=== PATIENT | female | born 2000 | race Caucasian/White ===

== ENCOUNTER 2018-05-15 10:30 | Emergency (ER) | payer OTHER ==
--- NOTE | 2018-05-15 11:08 | ED ---
Abdominal Pain/Female - HPI Summary HPI Summary: A 17 y/o F presents to the ED with c/o LLQ pain onset three days ago, and worsening last night and today. Pain is described as cramping and sharp. Aggravating factors: deep breaths, walking. When she walks, the pain radiates toward her LUQ and L-sided back. She denies urinary sx. She has not taken any OTC mediations for pain. She flew from [place] two weeks ago, and had some episodes of diarrhea but that spontaneously resolved. She's had a BM twice in the past three days per baseline. She has a PMHx of IBS/constipation. Other PMHx includes CP, asthma, heart murmur. [facility]: 05/13/2018 which was normal for her. - History of Current Complaint Chief Complaint: EDAbdPain Stated Complaint: LEFT SIDED ABD PAIN PER PT Time Seen by Provider: 05/15/18 10:57 Hx Obtained From: Patient Onset/Duration: Gradual Onset, Lasting Days, Still Present Timing: Constant Severity Initially: Moderate Severity Currently: Moderate Pain Intensity: 7 Pain Scale Used: 0-10 Numeric Location: Discrete At: LLQ Radiates: Yes Radiates to: Back, Other - LUQ Character: Sharp, Cramping Aggravating Factor(s): Movement - walking, Deep Breaths Associated Signs and Symptoms: Negative: Urinary Symptoms Allergies/Adverse Reactions: Allergies Allergy/AdvReac Type Severity Reaction Status Date / Time No Known Allergies Allergy Verified 05/15/18 10:35 PMH/Surg Hx/FS Hx/Imm Hx Previously Healthy: No - CP, heart murmur Respiratory History: Reports: Hx Asthma GI History: Reports: Hx Irritable Bowel Infectious Disease History: No Infectious Disease History: Denies: Traveled Outside the [place] in Last 30 Days - Family History Known Family History: Positive: Unknown - She states she does not really talk to family - Social History Occupation: Student Lives: Dormitory/Roommates Review of Systems Positive: Abdominal Pain Negative: dysuria, hematuria Musculoskeletal: Other - pos: back pain All Other Systems Reviewed And Are Negative: Yes Physical Exam - Summary Physical Exam Summary: Appearance: The patient is well-nourished in no acute distress and in no acute pain. Skin: The skin is warm and dry and skin color reflects adequate perfusion. HEENT: The head is normocephalic and atraumatic. The pupils are equal and reactive. The conjunctivae are clear and without drainage. Nares are patent and without drainage. Mouth reveals moist mucous membranes and the throat is without erythema and exudate. The external ears are intact. The ear canals are patent and without drainage. The tympanic membranes are intact. Neck: the neck is supple with full range of motion and non-tender. There are no carotid bruits. There is no neck vein distension. Respiratory: Chest is non-tender. Lungs are clear to auscultation and breath sounds are symmetrical and equal. Cardiovascular: Heart is regular rate and rhythm. There is no murmur or rub auscultated. There is no peripheral edema and pulses are symmetrical and equal. Abdomen: The abdomen is soft with mild tenderness to the L periumbilical area. There are normal bowel sounds heard in all four quadrants and there is no organomegaly palpated. Musculoskeletal: There is no back tenderness noted. Extremities are non-tender with full range of motion. There is good capillary refill. There is no peripheral edema or calf tenderness elicited. Neurological: Patient is alert and oriented to person, place and time. The patient has symmetrical motor strength in all four extremities. Cranial nerves are grossly intact. Deep tendon reflexes are symmetrical and equal in all four extremities. Psychiatric: The patient has an appropriate affect and does not exhibit any anxiety or depression. Triage Information Reviewed: Yes Vital Signs On Initial Exam: Initial Vitals Temp Pulse Resp BP Pulse Ox 99.1 F 132 20 140/97 97 05/15/18 10:31 05/15/18 10:31 05/15/18 10:31 05/15/18 10:31 05/15/18 10:31 Vital Signs Reviewed: Yes Diagnostics - Vital Signs Vital Signs Temp Pulse Resp BP Pulse Ox 05/15/18 10:31 99.1 F 132 20 140/97 97 - Laboratory Result Diagrams: 05/15/18 11:19 05/15/18 11:19 Lab Statement: Any lab studies that have been ordered have been reviewed, and results considered in the medical decision making process. - CT A/P CT CT Interpretation Completed By: Radiologist Summary of CT Findings: IMPRESSION: 1. There are multiple punctate calcifications in the bilateral renal collecting systems. No calculi is seen in either ureter or in the urinary bladder. There is questionable slight left- sided perinephric stranding raising the possibility that the patient has recently passed a left-sided renal stone. 2. 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 Please correspond to any chronic, gravity dependent pelvic pain or asymmetric swelling of the left leg relative to the right. ED provider has reviewed this report. Re-Evaluation - Re-Evaluation 1 Re-Evaluation Time: 15:35 Change: Improved Comment: Discussing results with pt. Abdominal Pain Fem Course/Dx - Course Course Of Treatment: Ms. Denis presented with about 3 days of left flank pain. It was aggravated by deep breaths and walking around but generally not reproducible. She denied any other symptoms. She was nontoxic in appearance with stable vitals and only mild left periumbilical tenderness. Labs were obtained and revealed a mild leukocytosis and an infected urine. My concern was she might have an obstructive lesion given how much pain she had and a CT scan was obtained after consulting with her. The radiologist felt there was some stranding and likely she had passed a stone. Either that or she has a pyelonephritis by itself. In either case I would treat her with antibiotics and she is stable. - Diagnoses Provider Diagnoses: Pyelonephritis Discharge - Sign-Out/Discharge Documenting (check all that apply): Patient Departure - DC Patient Received Moderate/Deep Sedation with Procedure: No - Discharge Plan Condition: Stable Disposition: HOME Prescriptions: Nitrofurantoin Monohyd/M-Cryst [Macrobid 100 mg Capsule] 100 mg PO BID #10 cap Patient Education Materials: Nitrofurantoin Combination (By mouth), Kidney Infection (ED) Forms: *School Release Referrals: [facility] [Outside] [facility] [place] [facility] [Outside] - 3 Days Additional Instructions: Please return to the ED if you experience new or worsening symptoms. Follow up with your primary care provider in 2-3 days. - Billing Disposition and Condition Condition: STABLE Disposition: Home - Attestation Statements Document Initiated by Scribe: Yes Documenting Scribe: Gloria Carson Provider For Whom Scribe is Documenting (Include Credential): Dr. Antonio Rebollar MD Scribe Attestation: Gloria Brath, scribed for Dr. Antonio Rebollar MD on 05/15/18 at 1728. Scribe Documentation Reviewed: Yes Provider Attestation: The documentation as recorded by the scribe, Gloria Carson accurately reflects the service I personally performed and the decisions made by me, Dr. Antonio Rebollar MD Status of Scribe Document: Viewed
[2018-05-15] MEDS ORDERED: NS 0.9% 1000 ML** 1,000 ML IV ONE (11:11)
[2018-05-15] MEDS ORDERED: Acetaminophen TAB* 325 MG PO ONE (11:11)
[2018-05-15 11:28] LABS: ABS Basophils 0.2 10^3/ul (0-0.2); ABS Eosinophils 0.1 10^3/ul (0-0.6); ABS Lymphocytes 1.5 10^3/ul (1.0-4.8); ABS Monocytes 0.8 10^3/ul (0-0.8); ABS Neutrophils 11.3 10^3/ul (1.5-7.7); ABS Nucleated RBC 0 10^3/ul; Eosinophil % 0.5 %; Hematocrit 43 % (33-41); Hemoglobin 14.5 g/dL (12.0-16.0); Lymphocyte % 10.8 %; Mean Corpuscular HGB Conc 34 g/dL (31-36); Mean Corpuscular Hemoglobin 30 pg (27-31); Mean Corpuscular Volume 87 fL (80-97); Mean Platelet Volume 8.9 fL (7.4-10.4); Nucleated Red Blood Cells % 0; Platelet Count 283 10^3/uL (150-450); Red Cell Distribution Width 13 % (10.5-15); White Blood Count 13.8 10^3/uL (3.5-10.8)
[2018-05-15 11:43] LABS: Urine Appearance Cloudy; Urine Bacteria 1+ (Absent); Urine Bilirubin Negative (Negative); Urine Blood 2+ (Negative); Urine Color Yellow; Urine Glucose Negative (Negative); Urine Ketones 1+ (Negative); Urine Nitrite Negative (Negative); Urine Protein 1+(30 mg/dL) (Negative); Urine Red Blood Cell 2+(6-10/hpf) (Absent); Urine Specific Gravity 1.009 (1.010-1.030); Urine Squamous Epithelial Cell Present (Absent); Urine Urobilinogen Negative (Negative); Urine White Blood Cell 3+(>20/hpf) (Absent)
[2018-05-15 11:54] LABS: ALT 20 U/L (7-52); AST 14 U/L (13-39); Albumin 4.5 g/dL (3.2-5.2); Albumin/Globulin Ratio 1.3 (1-3); Alkaline Phosphatase 67 U/L (34-104); Anion Gap 8 mmol/L (2-11); BUN/Creatinine Ratio 12.2 (8-20); Blood Urea Nitrogen 9 mg/dL (6-24); C Reactive Protein 8.92 mg/L (<8.01); CO2 Carbon Dioxide 28 mmol/L (22-32); Calcium 9.5 mg/dL (8.6-10.3); Chloride 101 mmol/L (101-111); EGFR African American 122.3 (>60); EGFR Non-African American 101.1 (>60); Globulin 3.4 g/dL (2-4); Glucose 104 mg/dL (70-100); Potassium 3.7 mmol/L (3.5-5.0); Sodium 137 mmol/L (135-145); Total Protein 7.9 g/dL (6.4-8.9)
[2018-05-15 14:11] LABS: HCG Pregnancy < 0.60 mIU/mL
[2018-05-15 16:33] VITALS: BP 121/72
--- NOTE | 2018-05-17 09:13 | PN ---
Progress Note - Progress Note Date of Service: 05/15/18 Note: Urine culture preliminary grew Escherichia coli 100,000 Patient was diagnosed with pyelonephritis She was given Macrobid twice daily This likely will not cover organism, however we'll await for sensitivities tomorrow
== END 2018-05-15 16:32 | disposition home or self-care (01) ==
LOC: ED 10:30
DX: N12 Tubulo-interstitial nephritis, not specified as acute or chronic (principal); B96.20 Unspecified Escherichia coli [E. coli] as the cause of diseases classified elsewhere; J45.909 Unspecified asthma, uncomplicated; K58.9 Irritable bowel syndrome, unspecified
CPT/HCPCS: 36415; 74176; 80053; 81003; 81015; 83605; 83690; 84702; 85025; 86140; 87077; 87086; 87186; 96361; 99282; A9270-GY